=== PATIENT | female | born 1940 ===

== ENCOUNTER 2022-08-12 06:34 | Observation (INO) ==
[~2022-08-12 06:34] MED LIST: Buffered Lidocaine 1% SYRIN 1 ml INTRADERM ONE; Lactated Ringers 1000 ml BAG 1,000 ML IV SCH; Metoclopramide 5 MG/ML VIAL (10 mg) IV PRN; Naloxone 0.4 mg VIAL 0.4 mg/ml 1 ml VIAL IV PRN; Ondansetron 4 mg VIAL 2 MG/ML 2 ml VIAL IV PRN
[2022-08-12] MEDS ORDERED: ceFAZolin 2 GM in NS PREMIX 2 GM/100 ML BAG IVPB ONE (07:05)
[2022-08-12] MEDS ORDERED: Propofol 10 MG/ML 20 ML BTL ONE ×2 (07:56→11:26)
[2022-08-12] MEDS ORDERED: Lidocaine 2% PF 5 ML VIAL ONE (07:56)
[2022-08-12] MEDS ORDERED: Ketamine HCL 50 mg/ml 10 ml VIAL (500 MG) ONE (07:57)
[2022-08-12] MEDS ORDERED: Dexamethasone IV 4 MG/ML VIAL 1 ml VIAL ONE (08:22)
[2022-08-12] MEDS ORDERED: fentaNYL 100 mcg/2 ml 50 MCG/ML VIAL ONE ×2 (08:22→13:11)
[2022-08-12] MEDS ORDERED: ROPIVACAINE 5 MG/ML 30 ML BTL (0.5%) ONE (08:22)
[2022-08-12] MEDS ORDERED: Ropivacaine 5 MG/ML 20 ML VIAL 0.5% (100 MG) ONE (08:50)
[2022-08-12] MEDS ORDERED: Midazolam 2 mg/2 ml VIAL 1 mg/ml 2 ml VIAL (2 mg) ONE (09:19)
[2022-08-12] MEDS ORDERED: Morphine 2 MG/ML SYRINGE IV PRN (09:21)
[2022-08-12] MEDS ORDERED: Ondansetron 4 mg VIAL 2 MG/ML 2 ml VIAL IV PRN (09:21)
[2022-08-12] MEDS ORDERED: Magnesium Hydroxide LIQ 30 ML UDC PO PRN (09:21)
[2022-08-12] MEDS ORDERED: Ondansetron ODT 4 mg TAB 4 MG TAB PO PRN (09:21)
[2022-08-12] MEDS ORDERED: Lactulose 30 ml UDC PO PRN (09:21)
[2022-08-12] MEDS ORDERED: Sterile Water for Inj 10 ML ONE (09:46)
[2022-08-12] MEDS ORDERED: Phenylephrine 40 mcg/mL 10mL (400mcg) SYRINGE ONE (09:51)
[2022-08-12] MEDS ORDERED: Lactated Ringers 1000 ml BAG 1,000 ML IV SCH (10:00)
[2022-08-12] MEDS ORDERED: ceFAZolin 1 GM ADVAN 1 GM in NS 0.9% 50 ML 50 ML IVPB SCH (10:00)
[2022-08-12] MEDS ORDERED: Ondansetron 4 mg VIAL 2 MG/ML 2 ml VIAL ONE (10:42)
[2022-08-12] MEDS ORDERED: HYDROcodone/ACETAMIN 5/325 mg TAB ONE ×2 (12:29→13:11)
[2022-08-12] MEDS: HYDROcodone/ACETAMIN 5/325 mg TAB PO PRN ×2 (12:31→13:12)
[2022-08-12] MEDS: fentaNYL 100 mcg/2 ml 50 MCG/ML VIAL IV PRN ×2 (13:12→13:16)
[2022-08-12] MEDS: ceFAZolin 1 GM ADVAN 1 GM in NS 0.9% 50 ML 50 ML IVPB SCH (16:33)
[2022-08-12] MEDS: Magnesium Hydroxide LIQ 30 ML UDC PO SCH (20:21)
[2022-08-13] MEDS: ceFAZolin 1 GM ADVAN 1 GM in NS 0.9% 50 ML 50 ML IVPB SCH ×2 (01:02→09:36)
[2022-08-13 06:27] LABS: Hematocrit 31 % (35-47); Hemoglobin 10.2 g/dL (12.0-16.0); Platelet Count 180 10^3/uL (150-450)
[2022-08-13 06:51] LABS: Potassium 4.6 mmol/L (3.5-5.0); eGFR CKD-EPI 79.2 (>60)
[2022-08-13] MEDS: Magnesium Hydroxide LIQ 30 ML UDC PO SCH (08:51)
[2022-08-13] MEDS ORDERED: Vitamin THERAPEUTIC TAB PO SCH (09:00)
[2022-08-13] MEDS ORDERED: NON FORMULARY MED (Multivitamin Tablet) PO SCH (09:00)
[2022-08-13] MEDS ORDERED: NON FORMULARY MED (Losartan-Hydrochlorothiazide 50-12.5 mg Tablet) PO SCH (09:00)
[2022-08-13 12:14] VITALS: BP 112/57
== END 2022-08-13 14:20 ==
LOC: AA 06:34 → INTOOBSV 06:34 → SSU 09:21
PROVIDERS: ADMIT Orthopaedic Surgery Adult Reconstructive Orthopaedic Surgery; ATTEND Orthopaedic Surgery Adult Reconstructive Orthopaedic Surgery